=== PATIENT | female | born 1980 | race Caucasian/White ===

== ENCOUNTER → 2016-07-26 | Outpatient (CLI) | payer BC ==
[2016-06-07 08:02] VITALS: BP 114/77
[~2016-07-26] MED LIST: ACET-704 PO; ALPR1TAB2 PO; BUTA1CAP29 PO; CYCL10TA2 PO; DIPH25TA64 PO; ESCI20TA10 PO; FEXO180T81 PO; IOHEXOL 180 MG/ML 10 ML VIAL. ONE; LANS30CA17 PO; MELA3TAB PO; OXYC-244 PO; PROM25SU32 RC; methylPREDNISolone ACETATE 40 MG/ML VIAL. ONE; methylPREDNISolone ACETATE 80 MG/ML VIAL. ONE
--- NOTE | 2016-07-27 06:57 | PAIN ---
DATE OF SERVICE: 07/26/2016 INITIAL CONSULTATION FOR PAIN CLINIC. CHIEF COMPLAINT: Low back and right lower extremity pain. HISTORY OF PRESENT ILLNESS: This is a 36-year-old female who presents with history of pain since 03/2016, beginning in the low back, right hip, right leg. The patient reports it is not a result of any specific injury or action that she is aware of. It occurred suddenly, but was not from injury. The patient reports now as a constant, sharp, stabbing pain radiating into the right leg, mostly into the hip and gluteus, but sometimes into the groin on the right side and sometimes into the lower leg, but only very rarely. The patient reports it is always on the right side. She has been seen by orthopedist who has done extensive workup and even an injection in her right hip without any improvement whatsoever. The patient did have an MRI scan of the lumbar spine showing changes of degenerative disk disease throughout the mid and lower lumbar spine with mild left greater than right central spinal canal stenosis at L4-L5 with a paracentral central to left focal disk protrusion at L4-L5, again combining resulting in mild left greater than right central spinal canal stenosis. The patient reports the pain is much worse with standing, walking or even sitting for more than about 10 minutes, is very excruciating. The patient been off work now for several months because of the pain, reports it awakens her from sleep at least 2-4 times at night, does not affect her bowel or bladder control, but does affect ability to walk or stand and she works as a standing position at her job. The patient reports she is taking Percocet as well as Flexeril, both of which helped about 50%, also had some chiropractic therapies and has been doing some exercises and stretching on her own with the chiropractic guidance as well. The patient rates her disability rate from 0 to 10, 10 being the worst, as a 10 with family and home responsibilities and occupation, 9 with recreation and life support activities, 8 with social activity and 7 with self care. The patient reports no significant radiation to left lower extremity, no loss of motor function, but significant fatigability with the right leg with standing and walking. PAST MEDICAL HISTORY: Significant for COPD, cigarette smoking half-a-pack a day for 19 years, hypotension, dizziness, headaches, migraines and arthritis. PREVIOUS SURGERY: Include hysterectomy in 2009, right shoulder arthroscopy in 2013 and 2011, laparoscopy x 8 for endometriosis, previous cholecystectomy in 2006 and tonsillectomy at age 7 years. CURRENT MEDICATIONS: Include melatonin, Xanax, Percocet, Benadryl, Prevacid and cyclobenzaprine. ALLERGIES: THE PATIENT IS ALLERGIC TO BIAXIN, COMPAZINE AND AVELOX. FAMILY HISTORY: Significant for rheumatoid arthritis. SOCIAL HISTORY: The patient smokes less than a pack a day for the past 19 years. Does not drink alcohol. 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 REVIEW OF SYSTEMS: The patient's review of systems is positive for those items mentioned in history of present illness. All systems reviewed and otherwise negative. It is complete, full and well documented on the patient's chart. PHYSICAL EXAMINATION: VITAL SIGNS: Today, the patient's blood pressure is 112/82, pulse 105, respirations are 16, temperature is 98.7 degrees Fahrenheit. Height is 5 feet 5 inches and weighs 189 pounds. GENERAL: The patient is awake, alert, oriented, appropriate, very pleasant demeanor. HEENT: Head shows normocephalic, atraumatic. Extraocular movements are intact and symmetrical. Oral cavity shows mucous membranes moist and pink. Dentition is intact. NECK: Shows anterior throat supple without palpable lymphadenopathy noted. Swallow reflex is symmetrical. CHEST: Shows normal on inspection. Breath sounds clear to auscultation bilaterally. HEART: Shows S1 and S2 clear. ABDOMEN: Soft, nontender, nondistended. No palpable organomegaly. No rebound or guarding demonstrated. BACK: Shows spine grossly midline. Normal appearing thoracic kyphosis, cervical lordotic curvature and lumbar lordotic curvature. No previous bruises, lesions, rashes or scars are noted. The patient does have some tattooing in the low lumbar distribution, lumbar paraspinous muscle shows some moderate tenderness with palpation, but is symmetrical on inspection. No radiation of pain with palpation. There is no tenderness over the spinous processes. No tenderness over the sacrum or sacroiliac regions. The patient shows good rotation and motion of the lumbar spine, both laterally greater than 10 degrees right and left as well as extension greater than 10 degrees, forward flexion 45 degrees without exacerbation of pain. The patient's muscle girth is normal and symmetrical firm again, but only moderately tender in the lumbar paraspinous muscles. LOWER EXTREMITIES: Show deep tendon reflexes at 2+ in the patellar, 1+ tendo-calcaneus tendons are equal. Motor exam is strong with 5/5 dorsiflexion, extension, quadriceps and hamstring flexion symmetrical. Peripheral pulses are 2+ in the posterior tibial and dorsalis pedis pulses. No peripheral edema is noted. No clubbing, no cyanosis. Lower extremities are warm and dry to touch, equal in color and appearance. Straight leg raise noted to be grossly positive on the right at about 45 degrees, but is decreased with knee flexion. Left side is negative. Gaenslen's and Pedro's maneuvers are both negative bilaterally as well. The patient is able to stand, stand on her toes without difficulty, without loss of balance, walks with a slight favoring gait, favors the right lower extremity, even for short walk in the office today, was not using any assistive devices such as canes or walkers to ambulate. IMPRESSION: 1. This is a 36-year-old female with approximate 5-month history of increasing pain in low back with radiation to the right lower extremity. 2. MRI scan of lumbar spine as noted. 3. History of arthritis. 4. Cigarette smoking. PLAN: Options were discussed with the patient including conservative medical management, physical therapy and interventional techniques. She would like to pursue interventional techniques since she already is pursuing some physical therapy and chiropractic treatment. We discussed a lumbar epidural steroid injection using description as well as anatomical models to describe the procedure. Risks were then discussed including, but not limited to bleeding, infection, possibility of epidural hematoma, subsequent neurologic compromise, dural puncture, headaches, spinal cord and/or nerve damage, side effects of steroid medication and poor results regarding pain control. The patient understands and wishes to proceed. The patient will return to clinic in approximately 2 weeks for followup, was counseled on return appointment, activity level and side effects to be aware of. DIAGNOSIS: Lumbar radiculopathy with lumbar degenerative disk disease and lumbar spinal stenosis. PROCEDURE: Lumbar epidural steroid injection, translaminar approach at the L4-L5 level with fluoroscopic guidance under sterile prep and drape and with local anesthetic. Medications injected are 120 mg Depo-Medrol plus 10 mL of preservative-free normal saline and 2 mL of Isovue for contrast. The patient's condition at discharge is stable. The patient tolerated procedure well, had no complications. MADY DUMONT MD DR: JAMES/guerline JOB#: [id number] / [id number]
== END ==
LOC: PNCL 09:29
PROVIDERS: ATTEND Anesthesiology
DX: M51.16 Intervertebral disc disorders with radiculopathy, lumbar region (principal); M48.06 Spinal stenosis, lumbar region; F41.9 Anxiety disorder, unspecified; F17.200 Nicotine dependence, unspecified, uncomplicated; Z90.710 Acquired absence of both cervix and uterus; Z90.49 Acquired absence of other specified parts of digestive tract; Z98.890 Other specified postprocedural states; M19.90 Unspecified osteoarthritis, unspecified site
CPT/HCPCS: 62323; J1030; J1040

== ENCOUNTER → 2016-10-17 | Outpatient (CLI) | payer BC ==
[2016-06-07 08:02] VITALS: BP 114/77
[~2016-10-17] MED LIST changes: +CLON0.1T PO; +DULO20CA PO; +IOHEXOL 180 MG/ML 10 ML VIAL. IT ONE; -IOHEXOL 180 MG/ML 10 ML VIAL. ONE; +LIDOCAINE 1% Multi-Dose 20 ML VIAL. ID ONE; -methylPREDNISolone ACETATE 40 MG/ML VIAL. ONE; -methylPREDNISolone ACETATE 80 MG/ML VIAL. ONE
--- NOTE | 2016-10-17 12:32 | KCIC ---
PROCEDURE Lumbar myelogram. HISTORY Severe low back pain into the right leg for 6-7 months, right leg numbness for 1 week TECHNIQUE Patient was informed of the risks to include pain, infection, bleeding, nerve root injury, seizures, allergic reaction. All questions were answered. Patient signed a written consent form for a lumbar myelogram.The patient was placed in a prone oblique position on the fluoroscopy table. External skin site of the lower back was prepped and draped in the usual sterile fashion. Betadine was utilized for cleansing solution. 1 percent lidocaine was utilized for local anesthesia at the anticipated site of puncture of the right [id number] space. A guiding needle was advanced into the soft tissues. Through the guiding needle, a 25 Kg needle was advanced until return of cerebral spinal fluid.Fifteen cc [id number] injected during fluoroscopic visualization. [place] were removed. There were no immediate complications. Fluoroscopic spot images were acquired to include standing images of the lumbar spine. The patient was transferred to CT suite for CT examination of the lumbar spine. Fluoroscopy time, fluoroscopy images: Forty-six seconds,11 images FINDINGS There is no evidence of myelographic block. There is anterior extradural defect at L4-L5. IMPRESSION There is anterior extradural defect at L4-5. Electronically signed by: Demarcus Henderson MD (Oct 17, 2016 12:31:38)
--- NOTE | 2016-10-17 12:32 | KCIC ---
PROCEDURE CT lumbar spine exam HISTORY Low back pain with right leg pain, lumbar spondylosis, right leg numbness for [address] imaging was performed lumbar spine after injection for the lumbar myelogram. Multiplanar reconstruction images are submitted. Exposure: One or more of the following individualized dose reduction techniques were utilized for this exam: 1. Automated exposure control. 2. Adjustment of the mA and/or kV according to patient size. 3. Use of iterative reconstruction technique. COMPARISON MRI lumbar spine exam June 30, 2016 FINDINGS There is very mild lumbar dextroscoliosis. Lumbar vertebral body stature is preserved. There is negligible posterior subluxation L4 relative to L5. There is again mild degenerative disc disease greater posteriorly at L5-S1. Conus terminates at L1. T12-L1: Spinal canal and the neural foramina are adequate. L1-L2: Spinal canal and neural foramina are adequate. There is mild to moderate facet hypertrophic change. L2-3: There is moderate facet hypertrophic change. Spinal canal and neural foramina are adequate. L3-4: There is moderate facet hypertrophic change. Spinal canal and neural foramina are adequate. L4-5: There is a broad posterior bulge. There is moderate to severe facet degenerative change and mild buckling of the ligamentum flavum. There is mild prominence of posterior epidural fat. Combination of findings results in mild narrowing of the far lateral recesses greater on the left. Neural foramina are adequate. L5-S1: There is moderate facet degenerative change. There is negligible disc osteophyte complex. There is mild posterior narrowing of the far lateral recesses greater on the left from facets. There is mild posterior narrowing of the neural foramina by facets greater on the left. IMPRESSION 1. There is mild lateral recess stenosis greater on the left at L4-5 and L5-S1 as described. There is a broad posterior bulge at L4-5. 2. There is multilevel lumbar facet hypertrophic change, negligible posterior subluxation L4 relative to L5. 3. There is mild L5-S1 neural foramina compromise greater on the left. 4. There is mild degenerative disc disease greater posteriorly at L5-S1. Electronically signed by: Demarcus Henderson MD (Oct 17, 2016 12:30:50)
== END | disposition home or self-care (01) ==
LOC: KCIC 10:23
PROVIDERS: ATTEND Neurological Surgery
DX: M51.37 Other intervertebral disc degeneration, lumbosacral region (principal); M48.07 Spinal stenosis, lumbosacral region; M79.604 Pain in right leg; M47.896 Other spondylosis, lumbar region
CPT/HCPCS: 72132; 72265

== ENCOUNTER 2018-12-26 17:40 | Emergency (ER) | payer SELFPAY ==
[2016-06-07 08:02] VITALS: BP 114/77
[~2018-12-26] VITALS: Ht 165.1 cm; Wt 86.2 kg
[~2018-12-26 17:40] MED LIST changes: -ESCI20TA10 PO; -IOHEXOL 180 MG/ML 10 ML VIAL. IT ONE; -LANS30CA17 PO; +LANS30CA66 PO; +LEXAPRO20 MG PO; -LIDOCAINE 1% Multi-Dose 20 ML VIAL. ID ONE; -MELA3TAB PO; +MELA3TAB2 PO; -OXYC-244 PO; +OXYC1TAB19 PO
--- NOTE | 2018-12-26 18:56 | PHYS DOC ---
Past Medical History Past Medical History: Asthma, Endometriosis, Migraines Additional Past Medical Histor: gastroparesis Past Surgical History: Hysterectomy Additional Past Surgical Histo: partial hyst Alcohol Use: None Drug Use: None Adult General Chief Complaint Chief Complaint: ANKLE PROBLEM HPI HPI 38-year-old female presents to ER for complaints of ankle pain. Patient states she stood up on Monday and felt a strain in her left ankle denies twisting or falling. Pt reports she has been taking ibuprofen and using ice packs. Patient reports she has been walking without assistive device. She has had prior surgery with plate/pins in left ankle. Review of Systems Review of Systems Musculoskeletal: Reports lt ankle pain Integument: Denies bruising. Reports swelling lateral ankle Neurologic: Denies focal weakness or sensory changes [] All other systems were reviewed and found to be within normal limits, except as documented in this note. Allergies Allergies Allergies Coded Allergies Type Severity Reaction Last Updated Verified clarithromycin Adverse Reaction Intermediate vomiting 11/03/14 No moxifloxacin Adverse Reaction Intermediate vomiting 11/03/14 No prochlorperazine Adverse Reaction Intermediate AMS 11/03/14 No Physical Exam Physical Exam Constitutional: Well developed, well nourished, no acute distress, non-toxic appearance. [] HENT: Normocephalic, atraumatic, oropharynx moist, nose normal. [] Eyes: Pupils equal, conjunctiva normal, no discharge. [] Neck: Normal range of motion, no tenderness, supple, no stridor. [] Cardiovascular: Heart rate regular Lungs & Thorax: Resp. equal/nonlabored Skin: Warm, dry, no erythema, no rash. [] Extremities: No cyanosis, no clubbing, ROM decreased in lt ankle- tender on palp. lt lateral ankle- swelling. No palp. deformity. 2+ lt posterior tibial/dorsalis pedis. Neurologic: Alert and oriented X 3, normal motor function, normal sensory function, no focal deficits noted. [] Psychologic: Affect normal, judgement normal, mood normal. [] Current Patient Data Vital Signs Vital Signs Date Time Temp Pulse Resp B/P (MAP) Pulse Ox O2 Delivery O2 Flow Rate FiO2 12/26/18 18:08 97.9 94 128/73 (91) 98 Room Air 97.9 EKG EKG [] Radiology/Procedures Radiology/Procedures [] Course & Med Decision Making Course & Med Decision Making Pertinent Imaging studies reviewed. (See chart for details) Pt was evaluated in the ER for complaints of left ankle pain and swelling. X- rays were obtained and reviewed by Dr. Frey with no obvious displaced fractures. This was discussed with patient. She remains PMS intact in left lower extremity. Discussed plans for Wilian wrap, air splint, and crutches. Discussed need for follow-up with orthopedics for reevaluation and further care. Will provide orthopedic referral information on discharge paperwork. RICE acronym discussed.Education provided on signs and symptoms to return to ER. Discharge instructions were discussed. Dragon Disclaimer Dragon Disclaimer This electronic medical record was generated, in whole or in part, using a voice recognition dictation system. Departure Departure Impression: Primary Impression: Ankle pain, left Disposition: 01 HOME, SELF-CARE Condition: STABLE Referrals: NO PCP (PCP) MONALISA HUMPHREYS MD Patient Instructions: Ankle Pain, Crutch Use, Elastic Bandage and RICE Additional Instructions: Follow-up with orthopedic doctor for reevaluation and further care. With the Wilian wrap and air splint while walking to improve support to your ankle. Use crutches to allow rest to your left ankle as needed. Tylenol and/or ibuprofen as needed for pain as directed on container. Ice pack to affected area every 3-4 hours for 20 to 30 minutes at a time. Scripts Hydrocodone/Apap 5-325 (NORCO 5-325 TABLET) 1 Each Tablet 1 TAB PO PRN Q6HRS PRN for PAIN, #8 TAB 0 Refills No driving or drinking alcohol while taking this medication Prov: AGAPITO MELENDEZ APRN 12/26/18 AGAPITO MELENDEZ APRN Dec 26, 2018 18:56
--- NOTE | 2018-12-26 19:08 | RAD ---
Left ankle 3 views. HISTORY: Pain, history of surgery 3 views were taken of the left ankle. There is a plate on the distal fibula with an old healed fracture. There is no acute fracture. There is spurring on the calcaneus. There is no acute osseous abnormality. IMPRESSION: 1. Old healed fracture of the fibula with a plate and multiple screws. 2. No acute fracture or acute osseous abnormality. Electronically signed by: Jared Wesley MD (12/26/2018 7:05 PM) [facility]
[2018-12-26] MEDS ORDERED: HYDR-3164 PO (19:21)
== END 2018-12-26 19:25 | disposition home or self-care (01) ==
LOC: ER 17:40
DX: M25.572 Pain in left ankle and joints of left foot (principal); J45.909 Unspecified asthma, uncomplicated; G43.909 Migraine, unspecified, not intractable, without status migrainosus; Z90.710 Acquired absence of both cervix and uterus; Z88.1 Allergy status to other antibiotic agents; Z88.8 Allergy status to other drugs, medicaments and biological substances
CPT/HCPCS: 29515; 73610; 99284

== ENCOUNTER 2019-03-11 19:43 | Emergency (ER) | payer BC ==
[~2019-03-11] VITALS: Ht 162.6 cm; Wt 72.6 kg
[~2019-03-11 19:43] MED LIST changes: +HYDR-3164 PO; -MELA3TAB2 PO; +MELA3TAB56 PO
[2019-03-11] MEDS ORDERED: KETOROLAC 15 MG/ML VIAL. IV ONE (21:30)
[2019-03-11] MEDS ORDERED: ONDANSETRON PF 4 MG/2 ML VIAL. IV ONE (21:30)
[2019-03-11] MEDS ORDERED: IV NORMAL SALINE 1000ML BAG 1,000 ML IV ONE (21:30)
[2019-03-11] MEDS ORDERED: diphenhydrAMINE 50 MG/ML VIAL IVP ONE (21:30)
[2019-03-11] MEDS ORDERED: DEXAMETHASONE SOD PHOS 20 MG/5 ML VIAL. IV ONE (21:30)
[2019-03-11] MEDS ORDERED: ORPHENADRINE CITRATE 60 MG/2 ML VIAL. IV ONE (23:15)
[2019-03-11] MEDS ORDERED: fentaNYL PF VIAL 100 MCG/2 ML VIAL IV ONE (23:15)
[2019-03-12 00:03] VITALS: BP 125/90
--- NOTE | 2019-03-12 00:26 | PHYS DOC ---
Past Medical History Past Medical History: Asthma, Endometriosis, Migraines Additional Past Medical Histor: gastroparesis Past Surgical History: Cholecystectomy, Hysterectomy Additional Past Surgical Histo: partial hyst Alcohol Use: None Drug Use: None Adult General Chief Complaint Chief Complaint: HEADACHE HPI HPI Patient is a 39 year old [f__sex] who presents with [] Review of Systems Review of Systems Constitutional: Denies fever or chills [] Eyes: Denies change in visual acuity, redness, or eye pain [] HENT: Denies nasal congestion or sore throat [] Respiratory: Denies cough or shortness of breath [] Cardiovascular: No additional information not addressed in HPI [] GI: Denies abdominal pain, nausea, vomiting, bloody stools or diarrhea [] : Denies dysuria or hematuria [] Musculoskeletal: Denies back pain or joint pain [] Integument: Denies rash or skin lesions [] Neurologic: Denies headache, focal weakness or sensory changes [] Endocrine: Denies polyuria or polydipsia [] All other systems were reviewed and found to be within normal limits, except as documented in this note. Current Medications Current Medications Current Medications Medications (Trade) Dose Ordered Sig/Emily Start Time Stop Time Status Last Admin Dose Admin Dexamethasone Sodium Phosphate (Decadron) 10 mg 1X ONCE 03/11/19 21:30 03/11/19 21:31 DC 03/11/19 21:25 10 MG Diphenhydramine HCl (Benadryl) 25 mg 1X ONCE 03/11/19 21:30 03/11/19 21:31 DC 03/11/19 21:25 25 MG Fentanyl Citrate (Fentanyl 2ml Vial) 50 mcg 1X ONCE 03/11/19 23:15 03/11/19 23:16 DC 03/11/19 23:19 50 MCG Ketorolac Tromethamine (Toradol 15mg Vial) 15 mg 1X ONCE 03/11/19 21:30 03/11/19 21:31 DC 03/11/19 21:25 15 MG Ondansetron HCl (Zofran) 4 mg 1X ONCE 03/11/19 21:30 03/11/19 21:31 DC 03/11/19 21:25 4 MG Orphenadrine Citrate (Norflex) 60 mg 1X ONCE 03/11/19 23:15 03/11/19 23:16 DC 03/11/19 23:19 60 MG Sodium Chloride 1,000 ml @ 1,000 mls/hr 1X ONCE 03/11/19 21:30 03/11/19 22:29 DC 03/11/19 21:26 1,000 MLS/HR Allergies Allergies Allergies Coded Allergies Type Severity Reaction Last Updated Verified clarithromycin Adverse Reaction Intermediate vomiting 11/03/14 No moxifloxacin Adverse Reaction Intermediate vomiting 11/03/14 No prochlorperazine Adverse Reaction Intermediate AMS 11/03/14 No Physical Exam Physical Exam Constitutional: Well developed, well nourished, no acute distress, non-toxic appearance. [] HENT: Normocephalic, atraumatic, bilateral external ears normal, oropharynx moist, no oral exudates, nose normal. [] Eyes: PERRLA, EOMI, conjunctiva normal, no discharge. [] Neck: Normal range of motion, no tenderness, supple, no stridor. [] Cardiovascular:Heart rate regular rhythm, no murmur [] Lungs & Thorax: Bilateral breath sounds clear to auscultation [] Abdomen: Bowel sounds normal, soft, no tenderness, no masses, no pulsatile masses. [] Skin: Warm, dry, no erythema, no rash. [] Back: No tenderness, no CVA tenderness. [] Extremities: No tenderness, no cyanosis, no clubbing, ROM intact, no edema. [] Neurologic: Alert and oriented X 3, normal motor function, normal sensory function, no focal deficits noted. [] Psychologic: Affect normal, judgement normal, mood normal. [] Current Patient Data Vital Signs Vital Signs Date Time Temp Pulse Resp B/P (MAP) Pulse Ox O2 Delivery O2 Flow Rate FiO2 03/11/19 23:19 16 98 Room Air EKG EKG [] Radiology/Procedures Radiology/Procedures [] Course & Med Decision Making Course & Med Decision Making Pertinent Labs and Imaging studies reviewed. (See chart for details) [] Dragon Disclaimer Dragon Disclaimer This electronic medical record was generated, in whole or in part, using a voice recognition dictation system. Departure Departure Impression: Primary Impression: Headache Disposition: HOME, SELF-CARE Condition: IMPROVED Referrals: NO PCP (PCP) Patient Instructions: Migraine Headache, [id number] Scripts Promethazine Hcl (PROMETHAZINE HCL) 25 Mg Tablet 1 TAB PO PRN Q6HRS PRN for NAUSEA, #10 TAB Prov: BECCA CABELLO DO 03/12/19 Orphenadrine Citrate (ORPHENADRINE CITRATE) 100 Mg Tablet.er 100 MG PO BID PRN for MUSCLE PAIN, #14 Prov: BECCA CABELLO DO 03/12/19 Problem Qualifiers Primary Impression: Headache Headache type: unspecified Headache chronicity pattern: acute headache Intractability: intractable Qualified Codes: R51 - Headache BECCA CABELLO DO Mar 12, 2019 00:26
[2019-03-12] MEDS ORDERED: ORPH100T PO (00:33)
[2019-03-12] MEDS ORDERED: PROM25TA10 PO (00:33)
== END 2019-03-12 00:46 | disposition home or self-care (01) ==
LOC: ER 19:43
DX: G43.909 Migraine, unspecified, not intractable, without status migrainosus (principal); J45.909 Unspecified asthma, uncomplicated; Z90.49 Acquired absence of other specified parts of digestive tract; Z90.710 Acquired absence of both cervix and uterus; Z88.1 Allergy status to other antibiotic agents; Z88.8 Allergy status to other drugs, medicaments and biological substances
CPT/HCPCS: 96374; 96375; 99284; J1100; J1200; J1885; J2360; J2405; J3010; J7030

== ENCOUNTER 2019-04-29 12:04 | Emergency (ER) | payer BC ==
[~2019-04-29] VITALS: Ht 165.1 cm; Wt 89.8 kg
[~2019-04-29 12:04] MED LIST changes: +ORPH100T PO; +PROM25TA10 PO
[2019-04-29] MEDS ORDERED: KETOROLAC 30 MG/ML VIAL. IV ONE (12:30)
--- NOTE | 2019-04-29 12:30 | PHYS DOC ---
Past Medical History Past Medical History: No Pertinent History, Endometriosis Additional Past Medical Histor: gastroparesis Past Surgical History: No Surgical History, Cholecystectomy Additional Past Surgical Histo: partial hyst Alcohol Use: None Drug Use: None Adult General Chief Complaint Chief Complaint: PLEURISY HPI HPI 39-year-old female presents to the emergency room complaints of pleuritic chest pain. Patient states she's been done with his ongoing times the last 6 weeks. She is currently on her second round of antibiotic therapy. She's received steroids as well. Her primary care physician referred her to the hospital for further evaluation. She denies any fever has had some nausea. Denies any abdominal pain, headache, visual change. Review of Systems Review of Systems Constitutional: Denies fever or chills [] Eyes: Denies change in visual acuity, redness, or eye pain [] HENT: Denies nasal congestion or sore throat [] Respiratory: Denies cough or shortness of breath [] Cardiovascular: No additional information not addressed in HPI [] GI: Denies abdominal pain, + nausea, no vomiting, bloody stools or diarrhea [] Integument: Denies rash or skin lesions [] Neurologic: Denies headache, focal weakness or sensory changes [] All other systems were reviewed and found to be within normal limits, except as documented in this note. Current Medications Current Medications Current Medications Medications (Trade) Dose Ordered Sig/Emily Start Time Stop Time Status Last Admin Dose Admin Ketorolac Tromethamine (Toradol 30mg Vial) 30 mg 1X ONCE 04/29/19 12:30 04/29/19 12:31 DC 04/29/19 12:35 30 MG Allergies Allergies Allergies Coded Allergies Type Severity Reaction Last Updated Verified clarithromycin Adverse Reaction Intermediate vomiting 11/03/14 No moxifloxacin Adverse Reaction Intermediate vomiting 11/03/14 No prochlorperazine Adverse Reaction Intermediate AMS 11/03/14 No Physical Exam Physical Exam Constitutional: Well developed, well nourished, no acute distress, non-toxic appearance. [] HENT: Normocephalic, atraumatic, bilateral external ears normal, oropharynx moist, no oral exudates, nose normal. [] Eyes: PERRLA, EOMI, conjunctiva normal, no discharge. [] Neck: Normal range of motion, no tenderness, supple, no stridor. [] Cardiovascular:Heart rate regular rhythm, no murmur [] Lungs & Thorax: Bilateral breath sounds clear to auscultation [] Abdomen: Bowel sounds normal, soft, no tenderness, no masses, no pulsatile masses. [] Skin: Warm, dry, no erythema, no rash. [] Extremities: No tenderness, no edema. [] Neurologic: Alert and oriented X 3, no focal deficits noted. [] Psychologic: Affect normal, judgement normal, mood normal. [] Current Patient Data Vital Signs Vital Signs Date Time Temp Pulse Resp B/P (MAP) Pulse Ox O2 Delivery O2 Flow Rate FiO2 04/29/19 12:17 97.6 92 17 115/68 (84) 97 Room Air 97.6 Lab Values Laboratory Tests Test 04/29/19 12:35 White Blood Count 14.0 x10^3/uL (4.0-11.0) H Red Blood Count 5.03 x10^6/uL (3.50-5.40) Hemoglobin 15.2 g/dL (12.0-15.5) Hematocrit 45.0 % (36.0-47.0) Mean Corpuscular Volume 89 fL (79-100) Mean Corpuscular Hemoglobin 30 pg (25-35) Mean Corpuscular Hemoglobin Concent 34 g/dL (31-37) Red Cell Distribution Width 13.6 % (11.5-14.5) Platelet Count 530 x10^3/uL (140-400) H Neutrophils (%) (Auto) 51 % (31-73) Lymphocytes (%) (Auto) 41 % (24-48) Monocytes (%) (Auto) 5 % (0-9) Eosinophils (%) (Auto) 3 % (0-3) Basophils (%) (Auto) 1 % (0-3) Neutrophils # (Auto) 7.1 x10^3/uL (1.8-7.7) Lymphocytes # (Auto) 5.7 x10^3/uL (1.0-4.8) H Monocytes # (Auto) 0.7 x10^3/uL (0.0-1.1) Eosinophils # (Auto) 0.4 x10^3/uL (0.0-0.7) Basophils # (Auto) 0.2 x10^3/uL (0.0-0.2) D-Dimer (Danielle) < 0.27 ug/mlFEU Sodium Level 142 mmol/L (136-145) Potassium Level 4.5 mmol/L (3.5-5.1) Chloride Level 103 mmol/L (98-107) Carbon Dioxide Level 26 mmol/L (21-32) Anion Gap 13 (6-14) Blood Urea Nitrogen 15 mg/dL (7-20) Creatinine 0.8 mg/dL (0.6-1.0) Estimated GFR (Cockcroft-Gault) 79.4 BUN/Creatinine Ratio 19 (6-20) Glucose Level 112 mg/dL (70-99) H Calcium Level 9.7 mg/dL (8.5-10.1) Total Bilirubin 0.2 mg/dL (0.2-1.0) Aspartate Amino Transferase (AST) 12 U/L (15-37) L Alanine Aminotransferase (ALT) 31 U/L (14-59) Alkaline Phosphatase 87 U/L (46-116) Troponin I Quantitative < 0.017 ng/mL (0.000-0.055) Total Protein 7.5 g/dL (6.4-8.2) Albumin 3.8 g/dL (3.4-5.0) Albumin/Globulin Ratio 1.0 (1.0-1.7) Laboratory Tests 04/29/19 12:35 Laboratory Tests 04/29/19 12:35 EKG EKG [] Radiology/Procedures Radiology/Procedures [facility] [address] [place] [address] IMAGING REPORT Signed PATIENT: JORGE KOHLER ACCOUNT: [id number] : 1980 LOCATION: ER AGE: 39 SEX: F EXAM STATUS: REG ER ORD. PHYSICIAN: HARLEY NOLAND MD REASON: pleuritic chest pain X 6 weeks and cough PROCEDURE: CHEST PA & LATERAL EXAM: CHEST 2 VIEWS. HISTORY: Chest pain, cough. COMPARISON: None. FINDINGS: Frontal and lateral views of the chest are obtained. There are no confluent infiltrates. There is no pneumothorax or pleural effusion. The heart is not enlarged. IMPRESSION: 1. No confluent infiltrates. Electronically signed by: Sugey Farooq MD (04/29/2019 12:34 PM) [facility] DICTATED and SIGNED BY: DAYAN FAROOQ MD DATE: 04/29/19 1234 [] Course & Med Decision Making Course & Med Decision Making Pertinent Labs and Imaging studies reviewed. (See chart for details) []39-year-old female presents to the emergency room complaints of pleuritic chest pain. Patient states she's been done with his ongoing times the last 6 weeks. She is currently on her second round of antibiotic therapy. She's received steroids as well. Her primary care physician referred her to the hospital for further evaluation. She denies any fever has had some nausea. Denies any abdominal pain, headache, visual change. Labs/Imaging reviewed CXR without acute process Ddimer within normal limits Troponin negative Recommend dc home Patient to continue abx as directed by PCP Rory Disclaimer Dragon Disclaimer This electronic medical record was generated, in whole or in part, using a voice recognition dictation system. Departure Departure Impression: Primary Impression: Pleuritic chest pain Disposition: HOME, SELF-CARE Condition: STABLE Referrals: NO PCP (PCP) HARLEY NOLAND MD Apr 29, 2019 12:30
--- NOTE | 2019-04-29 12:37 | RAD ---
EXAM: CHEST 2 VIEWS. HISTORY: Chest pain, cough. COMPARISON: None. FINDINGS: Frontal and lateral views of the chest are obtained. There are no confluent infiltrates. There is no pneumothorax or pleural effusion. The heart is not enlarged. IMPRESSION: 1. No confluent infiltrates. Electronically signed by: Sugey Farooq MD (04/29/2019 12:34 PM) [facility]
[2019-04-29 12:51] LABS: BASO # 0.2 x10^3/uL (0.0-0.2); BASO % 1 % (0-3); EOS # 0.4 x10^3/uL (0.0-0.7); EOS % 3 % (0-3); HEMOGLOBIN 15.2 g/dL (12.0-15.5); LYMPH # 5.7 x10^3/uL (1.0-4.8); LYMPH % 41 % (24-48); MEAN CORPUSCULAR HEMOGLOBIN 30 pg (25-35); MEAN CORPUSCULAR HGB CONC 34 g/dL (31-37); MEAN CORPUSCULAR VOLUME 89 fL (79-100); MONO # 0.7 x10^3/uL (0.0-1.1); MONO % 5 % (0-9); NEUT # 7.1 x10^3/uL (1.8-7.7); NEUT % 51 % (31-73); PLATELET COUNT 530 x10^3/uL (140-400); RED BLOOD COUNT 5.03 x10^6/uL (3.50-5.40); RED CELL DISTRIBUTION WIDTH 13.6 % (11.5-14.5)
[2019-04-29 13:08] LABS: CALCIUM 9.7 mg/dL (8.5-10.1); CREATININE 0.8 mg/dL (0.6-1.0); GFR 79.4; POTASSIUM 4.5 mmol/L (3.5-5.1)
[2019-04-29 13:14] LABS: ALBUMIN 3.8 g/dL (3.4-5.0); TOTAL BILIRUBIN 0.2 mg/dL (0.2-1.0); TOTAL PROTEIN 7.5 g/dL (6.4-8.2)
[2019-04-29 13:38] VITALS: BP 98/57
== END 2019-04-29 13:38 | disposition home or self-care (01) ==
LOC: ER 12:04
DX: R07.81 Pleurodynia (principal); Z88.1 Allergy status to other antibiotic agents; Z88.8 Allergy status to other drugs, medicaments and biological substances
CPT/HCPCS: 36415; 71046; 80053; 84484; 85025; 85379; 96374; 99285; J1885

== ENCOUNTER → 2019-05-14 | Outpatient (CLI) | payer BC ==
[2019-04-29 13:38] VITALS: BP 98/57
[~2019-05-14] MED LIST changes: +IOHEXOL 300 MG/ML 100ML VIAL. IV ONE
--- NOTE | 2019-05-14 09:25 | KCIC ---
Examination: CT angiography chest HISTORY: History of chest pain, pleurisy for 8 weeks COMPARISON: None available TECHNIQUE: Axial CT angiographic images of chest were performed with IV contrast. Coronal and sagittal 3-D MIP reformats are performed Exposure: One or more of the following individualized dose reduction techniques were utilized for this examination: 1. Automated exposure control 2. Adjustment of the mA and/or kV according to patient size 3. Use of iterative reconstruction technique FINDINGS: The central airways are patent. The heart size grossly appears unremarkable. The caliber of the aorta grossly appears unremarkable. There is no evidence of filling defect identified in the main pulmonary arterial trunk and right and left main pulmonary arteries and the visualized lobar, segmental branches of the pulmonary arteries. Mild bibasilar lung airspace opacities likely atelectasis or infiltrates. No evidence of pleural effusion or pneumothorax. The liver, spleen, adrenals grossly appears unremarkable. No evidence of lytic bony destructive lesion. IMPRESSION: 1. No evidence of pulmonary embolism. 2. Mild bibasilar lung airspace opacities likely atelectasis or infiltrates. Electronically signed by: Mj Mosquera MD (05/14/2019 9:22 AM) [id number]
== END | disposition home or self-care (01) ==
LOC: KCIC CT 08:12
PROVIDERS: ATTEND Family Medicine
DX: R09.1 Pleurisy (principal); R05 Cough; J45.909 Unspecified asthma, uncomplicated; E11.9 Type 2 diabetes mellitus without complications; F17.200 Nicotine dependence, unspecified, uncomplicated; Z79.01 Long term (current) use of anticoagulants
CPT/HCPCS: 71275; Q9967

== ENCOUNTER 2019-08-26 20:10 | Emergency (ER) | payer SELFPAY ==
[~2019-08-26] VITALS: Ht 165.1 cm; Wt 92.0 kg
[~2019-08-26 20:10] MED LIST changes: -IOHEXOL 300 MG/ML 100ML VIAL. IV ONE
[2019-08-26 20:18] VITALS: BP 140/93
[2019-08-26] MEDS ORDERED: diphenhydrAMINE HCL 25 MG CAPSULE PO ONE (20:45)
[2019-08-26] MEDS ORDERED: ORPHENADRINE CITRATE 60 MG/2 ML VIAL. IM ONE (20:45)
[2019-08-26] MEDS ORDERED: KETOROLAC 60 MG/2 ML VIAL. IM ONE (20:45)
[2019-08-26] MEDS ORDERED: ONDANSETRON ODT 4 MG TAB.RAPDIS. PO ONE (20:45)
--- NOTE | 2019-08-26 21:44 | PHYS DOC ---
Past Medical History Past Medical History: Endometriosis, Migraines Additional Past Medical Histor: gastroparesis Past Surgical History: Cholecystectomy Additional Past Surgical Histo: partial hyst Smoking Status: Current Every Day Smoker Alcohol Use: None Drug Use: None Adult General Chief Complaint Chief Complaint: HEADACHE HPI HPI Patient is a 39 year old female who presents to the emergency department with complaints of a headache. Patient states that light has been bothering her eyes and she has felt nauseated with headache. She reports a history of migraines. States this headache is located in the back of her head. She denies any fever, numbness, tingling, weakness, vomiting, or neck pain. She currently rates pain a 10 out of 10 on the pain scale. Patient states she took one Fioricet at home with no relief of her symptoms. Patient states she is now out of her Fioricet. Review of Systems Review of Systems All other ROS is negative unless otherwise noted in HPI. Current Medications Current Medications Current Medications Medications (Trade) Dose Ordered Sig/Emily Start Time Stop Time Status Last Admin Dose Admin Diphenhydramine HCl (Benadryl) 50 mg 1X ONCE 08/26/19 20:45 08/26/19 20:47 DC 08/26/19 20:52 50 MG Ketorolac Tromethamine (Toradol Im) 30 mg 1X ONCE 08/26/19 20:45 08/26/19 20:47 DC 08/26/19 20:53 30 MG Morphine Sulfate (Morphine Sulfate) 5 mg 1X ONCE 08/26/19 22:30 08/26/19 22:29 DC 08/26/19 22:12 5 MG Ondansetron HCl (Zofran Odt) 4 mg 1X ONCE 08/26/19 20:45 08/26/19 20:47 DC 08/26/19 20:52 4 MG Orphenadrine Citrate (Norflex) 60 mg 1X ONCE 08/26/19 20:45 08/26/19 20:47 DC 08/26/19 20:53 60 MG Allergies Allergies Allergies Coded Allergies Type Severity Reaction Last Updated Verified clarithromycin Adverse Reaction Intermediate vomiting 11/03/14 No moxifloxacin Adverse Reaction Intermediate vomiting 11/03/14 No prochlorperazine Adverse Reaction Intermediate AMS 11/03/14 No Physical Exam Physical Exam See Above Constitutional: Well developed, well nourished, no acute distress, non-toxic appearance. [] HENT: Normocephalic, atraumatic, bilateral external ears normal, oropharynx moist, no oral exudates, nose normal. [] Eyes: PERRLA, EOMI, conjunctiva normal, no discharge. [] Neck: Normal range of motion, no stridor. [] Cardiovascular:Heart rate regular rhythm, no murmur [] Lungs & Thorax: Bilateral breath sounds clear to auscultation, Respirations even and unlabored, no retractions, no respiratory distress [] Skin: Warm, dry, no erythema, no rash. [] Back: No tenderness Extremities: No cyanosis, ROM intact, no edema. [] Neurologic: Alert and oriented X 3, no focal deficits noted. [] Psychologic: Affect normal, judgement normal, mood normal. [] Current Patient Data Vital Signs Vital Signs Date Time Temp Pulse Resp B/P (MAP) Pulse Ox O2 Delivery O2 Flow Rate FiO2 08/26/19 22:27 16 97 Room Air 08/26/19 22:25 71 08/26/19 20:18 97.9 140/93 (109) 97.9 EKG EKG [] Radiology/Procedures Radiology/Procedures [] Course & Med Decision Making Course & Med Decision Making Pertinent Labs and Imaging studies reviewed. (See chart for details) Pt reports feeling better after medications were given in the ER. Prescription written for Kwabena pt encouraged to follow up with PCP this week, return to ER if sx worsen. [] Dragon Disclaimer Dragon Disclaimer This electronic medical record was generated, in whole or in part, using a voice recognition dictation system. Departure Departure Impression: Primary Impression: Headache Disposition: 01 HOME, SELF-CARE Condition: STABLE Referrals: NO PCP (PCP) Patient Instructions: Tension Headache, Gowm-[id number] Additional Instructions: Fill the prescription and use it as directed. Follow-up with your primary care doctor if symptoms persist, return to the ER if symptoms worsen. Scripts Butalb/Acetaminophen/Caffeine ([id number] 50-325-40) 1 Each Tablet 1-2 EACH PO Q4HRS PRN for PAIN MDD 6 tabs for 3 Days, #18 TAB 0 Refills Prov: LISSY BRAN BRIDGE TENDER 08/26/19 Problem Qualifiers Primary Impression: Headache Headache type: tension-type Headache chronicity pattern: acute headache Intractability: not intractable Qualified Codes: G44.209 - Tension-type headache, unspecified, not intractable LISSY BRAN APRN Aug 26, 2019 21:44
[2019-08-26] MEDS ORDERED: BUTA1TAB23 PO (22:00)
[2019-08-26] MEDS ORDERED: MORPHINE SULFATE 10 MG/ML VIAL. IM ONE (22:30)
== END 2019-08-26 22:27 | disposition home or self-care (01) ==
LOC: ER 20:10
DX: G43.909 Migraine, unspecified, not intractable, without status migrainosus (principal); R11.0 Nausea; F17.200 Nicotine dependence, unspecified, uncomplicated; Z79.899 Other long term (current) drug therapy
CPT/HCPCS: 96372; 99284; J1885; J2270; J2360; Q0162; Q0163

== ENCOUNTER → 2019-12-24 | Outpatient (CLI) | payer BC ==
[~2019-12-24] MED LIST changes: +BUTA1TAB23 PO; +MELA3TAB4 PO; -MELA3TAB56 PO
--- NOTE | 2019-12-24 15:05 | KCIC ---
EXAM: Lumbar spine, 3 views. HISTORY: Pain. COMPARISON: None. FINDINGS: 3 views of the lumbar spine are obtained. There is lumbar dextroscoliosis. There is no listhesis. The vertebral bodies are normal in height and the disc spaces are preserved. There is facet arthropathy at the mid lower lumbar levels. IMPRESSION: No acute osseous finding. Mild facet arthropathy at the lower lumbar levels. Electronically signed by: Samira Levy MD (12/24/2019 3:02 PM) [facility]
== END | disposition home or self-care (01) ==
LOC: KCIC 14:16
PROVIDERS: ATTEND Nurse Practitioner Family
DX: M41.86 Other forms of scoliosis, lumbar region (principal); M12.88 Other specific arthropathies, not elsewhere classified, other specified site
CPT/HCPCS: 72100

== ENCOUNTER → 2020-01-28 | Outpatient (CLI) | payer BC, OTHER ==
--- NOTE | 2020-01-28 16:07 | KCIC ---
EXAM: Lumbar spine MRI without contrast. HISTORY: Lower back pain and right lower extremity radiculopathy. TECHNIQUE: Multiplanar, multisequence magnetic resonance imaging of the lumbar spine was performed without contrast. COMPARISON: MRI dated 06/30/[address] dated 10/17/2016. FINDINGS: There is mild thoracal lumbar scoliosis. There is minimal retrolisthesis of L4 and L5 and L5 on S1. There is endplate remodeling and disc desiccation at these levels. There is no suspicious osseous lesion. There is no fracture. There are incidental ovarian follicles, partially included on the [id number]. The conus terminates at L1. At L1-L2, L2-L3 and L3-L4, there is no stenosis. At L4-L5, there is a disc bulge and posterior annular tear with endplate remodeling. There is mild retrolisthesis. There is no stenosis. At L5-S1, there is a disc bulge and posterior annular tear with endplate remodeling. There is minimal left facet arthropathy. There is minimal right foraminal stenosis. IMPRESSION: 1. Minimal to mild degenerative change involving the lower lumbar spine, contrast into minimal right foraminal stenosis at L5-S1. 2. No acute finding. Electronically signed by: Samira Levy MD (01/28/2020 3:59 PM) [id number]
== END ==
LOC: KCIC MRI 14:54
PROVIDERS: ATTEND Nurse Practitioner Family
DX: M47.817 Spondylosis without myelopathy or radiculopathy, lumbosacral region (principal); M48.07 Spinal stenosis, lumbosacral region
CPT/HCPCS: 72148

== ENCOUNTER → 2020-02-11 | Outpatient (CLI) | payer OTHER ==
[~2020-02-11] MED LIST changes: +BUSP5TAB PO; +IBUP-1060 PO; +IOHEXOL 180 MG/ML 10 ML VIAL. ONE; +TRAM50TA PO; +methylPREDNISolone ACETATE 40 MG/ML VIAL. ONE; +methylPREDNISolone ACETATE 80 MG/ML VIAL. ONE
--- NOTE | 2020-02-11 11:26 | PDOC2 ---
INITIAL PAIN CONSULT DATE OF SERVICE: DOS: DATE: 02/11/20 TIME: 11:15 CHIEF COMPLAINT: Chief Complaint: Low back pain with right lower extremity pain HISTORY OF PRESENT ILLNESS: This is a 39-year-old female with history of about 2 months increasing pain low back right lower extremity radiating the posterior gluteus posterior thigh posterior calf and into the posterior and inferior aspect of the foot. Patient reports it came up without specific injury or accident is got worse 1 day patient reports is waking her from sleep at night least 2-3 times does not affect her bowel bladder control or her ability to walk she not use any assistive device such as canes or walker to ambulate. Patient is been taking tramadol as well as Lyrica which helps mildly she also had chiropractic treatment trigger point injections and physical therapy in the past which is been only mildly decreasing the pain only lasting for a day or so as well as a TENS unit application which is very mildly decreasing the pain. Patient reports the pain is worse with standing walking and changing positions better with sitting or laying down but again awaken her from sleep 2-3 times a night patient scribes the pain is constant sharp shooting with tingling and numbness in the right lower extremity radiating and easy fatigability with the right leg compared to the left with activity walking especially and standing. Patient reports no overt loss of motor function but significant fatigue and feels unstable with the right leg when she is on her feet more than about 1 hour. PAST MEDICAL HISTORY: PMH: Past medical history includes gastroparesis endometriosis interstitial cystitis anxiety cigarette smoking. PREVIOUS SURGERIES: Past Surgical Hx: Surgical history includes previous shoulder surgery x2 on the right partial hysterectomy cholecystectomy endometriosis tonsillectomy and adenoidectomy CURRENT MEDICATIONS: Current Meds: Active Scripts Medications Dose Route/Sig Max Daily Dose Days Date Category Ibuprofen 800 Mg Tablet 800 Mg PO PRN Q6HRS PRN 02/11/20 Reported Tramadol Hcl 50 Mg Tablet 50 Mg PO Q6HRS PRN 02/11/20 Reported Buspirone Hcl 5 Mg Tablet 1 Tab PO TID 02/11/20 Reported Clonidine Hcl 0.1 Mg Tablet 0.1 Mg PO TID 02/11/20 Reported Yovnqe-Dgofaaej-Ymfl 50-325-40 (Butalb/Acetaminophen/Caffeine) 1 Each Tablet 1-2 Each PO Q4HRS PRN MDD 6 tabs 3 08/26/19 Rx Cyclobenzaprine Hcl 10 Mg Tablet 1 Tab PO TID 07/26/16 Reported Benadryl Allergy (Diphenhydramine Hcl) 25 Mg Tablet 50 Mg PO HS PRN 06/07/16 Reported Phenergan (Promethazine HCl) 25 Mg Supp.rect 25 Mg RC 11/03/14 Reported ALLERGIES; Allergies: Coded Allergies: clarithromycin (Unverified Adverse Reaction, Intermediate, vomiting, 11/03/14) gabapentin (Verified Adverse Reaction, Intermediate, "speech", 02/11/20) moxifloxacin (Unverified Adverse Reaction, Intermediate, vomiting, 11/03/14) prochlorperazine (Unverified Adverse Reaction, Intermediate, AMS, 11/03/14) FAMILY HISTORY: Family Hx: Heart disease rheumatoid arthritis skin cancer diabetes and anxiety SOCIAL HISTORY: Social Hx: Patient does not drink alcohol smokes less than a half a pack a day for the past 25 years does not use any illegal illicit or recreational drugs is single lives locally in [facility] and 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 REVIEW OF SYSTEMS: ROS: Review of systems is positive those on admission is present also all system reviewed otherwise negative complete full well-documented patient's chart. PHYSICAL EXAM: VS: Pressure is 117/89 pulse 9 9 respiration 16 temperature 98.4 F height is 64 inches weight is 206 pounds PE: PHYSICAL EXAMINATION: GENERAL: The patient is awake, alert, oriented, appropriate, very pleasant demeanor HEENT: Shows normocephalic, atraumatic. Extraocular movements are intact and symmetrical. Oral cavity: Mucous membranes moist and pink. Dentition is intact. NECK: Shows anterior throat supple without palpable lymphadenopathy noted. Swallow reflex symmetrical. CHEST: Shows normal on inspection. Breath sounds are clear bilaterally no rales rhonchi or wheezes auscultated. HEART: Shows S1, S2 clear. No murmurs auscultated. ABDOMEN: Soft, nontender, nondistended. No palpable organomegaly is noted. No rebound or guarding demonstrated. BACK: Shows spine grossly in the midline. Normal-appearing cervical lordotic curvature. There is slightly increased thoracic kyphosis, some minor flattening of the lumbar lordotic curvature. Lumbar paraspinous muscles show symmetrical on inspection, on palpation shows some moderate tenderness diffusely throughout the upper, middle and lower distribution of the paraspinous muscles bilaterally and also into the lower thoracic paraspinous musculature, firm and tender, but without specific trigger points, without radiation of pain. The patient has good rotational motion of the lumbar spine, both laterally as well as extension and flexion without significant difficulty. No tenderness over the spinous processes, sacrum or sacroiliac regions. EXTREMITIES: Lower extremities show deep tendon reflexes 2+ in the patellar and tendo calcaneus tendons. Motor exam is 4 on a scale of 5 with right dorsifle xion, extension, quadriceps and hamstring flexion and 5/5 on the left. Peripheral pulses are 2+ posterior tibial. No peripheral edema is noted bilaterally. Lower extremities are warm and dry to touch, equal in color and appearance. Straight leg raise noted to be positive on the right about 40 degrees, left side is negative. Gaenslen's and Pedro's maneuvers are negative as well. The patient is able to stand and walk stand on her toes without significant difficulty or loss of balance not use any assistive devices to ambulate.. SKIN: Shows warm and dry, good turgor. No edema. No sores, rashes or bruising throughout. IMPRESSION: Impression: This is a 39-year-old female with approximate 2-month history of increasing pain low back right lower extremity in a radicular fashion following at L5-S1 dermatomal distribution ; #2 MRI scan lumbar spine as noted; #3 gastroparesis ; #4 asthma ;# 5 cigarette smoking. Plan: Options were discussed with the patient including conservative management physical therapy and interventional techniques - she like to pursue interventional techniques. We discussed a lumbar epidural steroid injection his description as well as anatomical model to describe the procedure. Risks were then discussed including but not limited to bleeding infection possibility of epidural hematoma and subsequent neurological compromise dural puncture headache spinal cord and or nerve damage side effects of steroid medication and/guarding pain control. Patient understands and wishes to proceed. Patient return to clinic in approximately 2 weeks for follow-up was counseled as to return appointment activity level and side effects to be aware. Procedure is lumbar epidural steroid injection under local anesthetic using sterile prep and drape at the L5-S1 level using C-arm fluoroscopic guidance in both AP and lateral views medications injected is 120 mg Depo-Medrol + 10 mL preservative-free normal saline and 2 mL Isovue for contrast- condition at discharge is stable patient tolerated procedure well had no complications. MADY DUMONT MD Feb 11, 2020 11:26
== END | disposition home or self-care (01) ==
LOC: PNCL 10:15
PROVIDERS: ATTEND Anesthesiology
DX: M54.5 Low back pain (principal); F41.9 Anxiety disorder, unspecified; N30.10 Interstitial cystitis (chronic) without hematuria; K31.84 Gastroparesis; N80.8 Other endometriosis; Z87.891 Personal history of nicotine dependence; Z98.890 Other specified postprocedural states; Z79.899 Other long term (current) drug therapy; Z81.8 Family history of other mental and behavioral disorders; Z83.3 Family history of diabetes mellitus; Z80.8 Family history of malignant neoplasm of other organs or systems
CPT/HCPCS: 62323; J1030; J1040; Q9965

== ENCOUNTER → 2020-03-17 | Outpatient (CLI) | payer OTHER ==
[~2020-03-17] MED LIST changes: -IOHEXOL 180 MG/ML 10 ML VIAL. ONE; -methylPREDNISolone ACETATE 40 MG/ML VIAL. ONE; -methylPREDNISolone ACETATE 80 MG/ML VIAL. ONE
--- NOTE | 2020-03-17 16:57 | KCIC ---
INDICATION: Reason: COUGH / Spl. Instructions: PT STATES SINUS DRAINAGE AND COUGH, ASTHMA. / History: COMPARISON: April 2019 FINDINGS: 2 view of chest obtained. Cardiac silhouette is similar to prior. No definite focal airspace consolidation or pulmonary edema. Mild degenerative changes the spine. IMPRESSION: * No focal airspace consolidation or edema. Electronically signed by: Josh Perez MD (03/17/2020 4:54 PM) [id number]
== END | disposition home or self-care (01) ==
LOC: KCIC 15:52
PROVIDERS: ATTEND Nurse Practitioner Family
DX: R05 Cough (principal); M47.9 Spondylosis, unspecified
CPT/HCPCS: 71046